=== PATIENT | female | born 1975 | race Caucasian/White ===

== ENCOUNTER 2023-01-18 05:23 | Day surgery (SDC) | payer OTHER ==
[2023-01-14 12:08] VITALS: BMI 25.8
[2023-01-18 11:48] VITALS: RESP 16
[2023-01-18 11:53] VITALS: BP 113/81; PULSE 58; TEMP 98.2
== END 2023-01-18 12:00 | disposition home or self-care (01) ==
LOC: JASU-ENDO 05:23
PROVIDERS: ATTEND Internal Medicine Gastroenterology
PROC: 0DB78ZX Excision of Stomach, Pylorus, Via Natural or Artificial Opening Endoscopic, Diagnostic (ICD-10-PCS; 2023-01-18)
PROC: 0DB68ZX Excision of Stomach, Via Natural or Artificial Opening Endoscopic, Diagnostic (ICD-10-PCS; principal; 2023-01-18 10:15)
DX: K29.50 Unspecified chronic gastritis without bleeding (principal); K31.7 Polyp of stomach and duodenum; K44.9 Diaphragmatic hernia without obstruction or gangrene
CPT/HCPCS: 81025; 88305-TC; 88342-TC